=== PATIENT | female | born 1990 | race Caucasian/White ===

== ENCOUNTER 2023-01-13 11:19 | Outpatient (CLI) | payer BC | END 2023-01-13 11:20 | disposition home or self-care (01) | LOC: CSHLAB 11:19 | PROVIDERS: ATTEND Student in an Organized Health Care Education/Training Program | DX: Z01.812 Encounter for preprocedural laboratory examination (principal); O34.219 Maternal care for unspecified type scar from previous cesarean delivery | CPT/HCPCS: 36415; 85014; 85018; 85049; 86780; 87340 ==

== ENCOUNTER 2023-01-16 10:02 | Inpatient (IN) | payer BC ==
[2023-01-13 12:39] LABS: Hemoglobin 12.7 g/dL (12.0-15.5); Platelet Count 228 10x3/uL (150-450)
[2023-01-13 13:12] LABS: Syphilis Antibody Nonreactive (Nonreactive); Syphilis Antibody Index 0.07 S/CO (<1.00 Non-Reactive)
[2023-01-13 13:14] LABS: HBSAg Index 0.14 S/CO (0-0.99); Hep B Surf Ag Non-Reactive S/CO (NonReactive)
[2023-01-16] MEDS ORDERED: hydrALAZINE 20 MG/ML VIAL SLOW IVP PRN ×2 (10:19→13:57)
[2023-01-16] MEDS ORDERED: Bicitra 30 ML UDCUP PO PRN (10:19)
[2023-01-16] MEDS ORDERED: Ondansetron PF 4 MG/2 ML Vial IVP PRN ×3 (10:19→13:57)
[2023-01-16] MEDS ORDERED: Famotidine/PF 20 mg/2ml Vial SLOW IVP PRN (10:19)
[2023-01-16] MEDS ORDERED: Promethazine HCl 25 MG/ML VIAL IM PRN ×3 (10:19→13:57)
[2023-01-16] MEDS ORDERED: Carboprost 250 MCG/ML AMP IM PRN (10:24)
[2023-01-16] MEDS ORDERED: Methylergonovine 0.2 MG/ML VIAL IM PRN ×2 (10:24→13:57)
[2023-01-16] MEDS ORDERED: Misoprostol 200 MCG TAB PR PRN ×2 (10:24→13:57)
[2023-01-16] MEDS ORDERED: Diphenoxylate HCl/Atropine Tablet PO PRN (10:24)
[2023-01-16] MEDS ORDERED: CEFAZOLIN 2 GM in Sodium Chloride 0.9% 100 ML IVPB SCH (10:30)
[2023-01-16] MEDS ORDERED: NS w/ Oxytocin 30 units 500 ML IV SCH (10:30)
[2023-01-16] MEDS ORDERED: Lactated Ringer's 1,000 ML IV SCH (10:30)
[2023-01-16 10:40] VITALS: BMI 31.7
[2023-01-16] MEDS ORDERED: Moisturizing Cream (Eucerin) 113 GM JAR TOP PRN (11:05)
[2023-01-16] MEDS ORDERED: Naloxone HCl 0.4 mg/ml Vial IVP PRN ×2 (11:05)
[2023-01-16] MEDS ORDERED: Meperidine HCl/PF 25 MG/ML VIAL SLOW IVP PRN (11:05)
[2023-01-16] MEDS ORDERED: diphenhydrAMINE 50 MG/ML VIAL IVP PRN (11:05)
[2023-01-16] MEDS ORDERED: Naloxone HCl 0.4 mg/ml Vial IV PRN (11:05)
[2023-01-16] MEDS ORDERED: Promethazine HCl 25 MG SUPP PR PRN (11:05)
[2023-01-16] MEDS ORDERED: Ondansetron HCl/PF 4 MG/2 ML Vial IVP PRN (11:05)
[2023-01-16] MEDS ORDERED: Fentanyl 100 MCG/2 ML VIAL SLOW IVP PRN (11:05)
[2023-01-16] MEDS ORDERED: Communication Order-Pharmacy FS SCH (11:15)
[2023-01-16] MEDS ORDERED: Morphine PF 10 MG/10 ML VIAL ONE (12:17)
[2023-01-16] MEDS ORDERED: Fentanyl 250 MCG/5 ML VIAL ONE (12:17)
[2023-01-16] MEDS ORDERED: Phenylephrine 40 MG/NS 250 ML 250 ML ONE (12:19)
[2023-01-16] MEDS ORDERED: Ketorolac Tromethamine 30 MG/ML VIAL ONE (12:37)
[2023-01-16] MEDS ORDERED: Dexamethasone 4 mg/ml Vial ONE (12:37)
[2023-01-16] MEDS ORDERED: Ondansetron PF 4 MG/2 ML Vial ONE (12:37)
[2023-01-16] MEDS ORDERED: Midazolam HCl 2 mg/2 ml Vial ONE (12:41)
[2023-01-16] MEDS ORDERED: Oxytocin 10 UNITS/ML VIAL ONE (12:48)
[2023-01-16] MEDS ORDERED: Lanolin Ointment 7 GM TUBE TOP PRN (13:57)
[2023-01-16] MEDS ORDERED: Boostrix 0.5 ML (Tdap) VIAL (>/=7 yrs of age) IM ONE (13:57)
[2023-01-16] MEDS ORDERED: Zolpidem Tartrate 5 MG TAB PO PRN (13:57)
[2023-01-16] MEDS ORDERED: Bisacodyl 10 MG SUPP PR PRN (13:57)
[2023-01-16] MEDS ORDERED: diphenhydrAMINE 25 MG CAP PO PRN (13:57)
[2023-01-16] MEDS ORDERED: HYDROcodone/Acetaminophen 5/325 mg Tablet PO PRN (13:57)
[2023-01-16] MEDS ORDERED: Acetaminophen 325 MG TAB PO PRN (13:57)
[2023-01-16] MEDS ORDERED: Ibuprofen 800 MG TAB PO SCH (14:00)
[2023-01-16] MEDS ORDERED: Meperidine HCl/PF 25 MG/ML VIAL ONE (14:11)
[2023-01-16] MEDS: Ketorolac Tromethamine 30 MG/ML VIAL IVP SCH ×2 (18:06→23:35)
[2023-01-16] MEDS: Ferrous Sulfate 325 MG TAB PO SCH (23:40)
[2023-01-16] MEDS: Docusate 100 MG CAP PO SCH (23:41)
[2023-01-17 03:36] LABS: Hemoglobin 10.1 g/dL (12.0-15.5); Mean Corpuscular HGB CONC 33.8 g/dL (32.0-36.0); Mean Corpuscular Hemoglobin 31.7 pg (27.0-33.0); Mean Corpuscular Volume 93.7 fl (81.6-98.3); Platelet Count 186 10x3/uL (150-450); RBC Distribution Width 12.4 % (11.5-14.5); Red Blood Cell (RBC) Count 3.19 10x6/uL (3.90-5.03)
[2023-01-17] MEDS: Ketorolac Tromethamine 30 MG/ML VIAL IVP SCH ×2 (06:25→11:47)
[2023-01-17] MEDS: Prenatal Vitamin 1 TAB PO SCH (08:12)
[2023-01-17] MEDS: Docusate 100 MG CAP PO SCH ×2 (08:12→21:35)
[2023-01-17] MEDS: Ferrous Sulfate 325 MG TAB PO SCH ×2 (08:12→21:34)
[2023-01-17] MEDS: Simethicone Chewable 80 MG TAB PO PRN ×2 (08:12→17:42)
[2023-01-17] MEDS: HYDROcodone/Acetaminophen 5/325 mg Tablet PO PRN (17:43)
[2023-01-17] MEDS: Ibuprofen 800 MG TAB PO SCH (21:36)
[2023-01-18] MEDS: HYDROcodone/Acetaminophen 5/325 mg Tablet PO PRN ×2 (01:48→11:00)
[2023-01-18] MEDS: Ibuprofen 800 MG TAB PO SCH ×2 (06:25→15:30)
[2023-01-18] MEDS: Ferrous Sulfate 325 MG TAB PO SCH (08:12)
[2023-01-18] MEDS: Docusate 100 MG CAP PO SCH (08:15)
[2023-01-18] MEDS: Prenatal Vitamin 1 TAB PO SCH (08:15)
[2023-01-18 11:24] VITALS: BP 140/73; TEMP 98.6
== END 2023-01-18 16:25 | disposition home or self-care (01) | DRG 787 ==
LOC: CSHLD 10:02 → CSHPED 16:09
PROVIDERS: ADMIT Student in an Organized Health Care Education/Training Program; ATTEND Student in an Organized Health Care Education/Training Program
PROC: 10D00Z1 Extraction of Products of Conception, Low, Open Approach (ICD-10-PCS; principal; 2023-01-16)
DX: O34.211 Maternal care for low transverse scar from previous cesarean delivery (principal); O98.32 Other infections with a predominantly sexual mode of transmission complicating childbirth; A60.00 Herpesviral infection of urogenital system, unspecified; Z3A.39 39 weeks gestation of pregnancy; Z37.0 Single live birth; Z79.899 Other long term (current) drug therapy
CPT/HCPCS: 36415; 85014; 85018; 85027; 85049; 86780; 86850; 86900; 86901; 87340; J1100; J1885; J2175; J2250; J2274; J2405; J2590; J3010; J3490; S0028